=== PATIENT | female | born 1990 | race Caucasian/White ===

== ENCOUNTER → 2019-09-23 | Outpatient (REF) | payer OTHER | LOC: M LAB REF 17:42 | PROVIDERS: ATTEND Family Medicine | DX: N39.490 Overflow incontinence (principal) ==

== ENCOUNTER → 2020-10-27 | Outpatient (CLI) | payer OTHER ==
[2020-10-27 14:15] LABS: HEMOGLOBIN A1c 5.9 %
[2020-10-27 14:27] LABS: ALT/SGPT 24 U/L (12-78); BILIRUBIN,TOTAL 0.4 MG/DL (0.2-1.0); BLOOD UREA NITROGEN 13 MG/DL (7-18); CARBON DIOXIDE LEVEL 30 MEQ/L (21-32); CHLORIDE LEVEL 106 MEQ/L (98-107); CREATININE FOR GFR 0.57 MG/DL (0.55-1.30); GLOMERULAR FILTRATION RATE > 60.0 (>60); GLUCOSE, FASTING 100 MG/DL (70-100); POTASSIUM SERUM 4.3 MEQ/L (3.5-5.1); SODIUM LEVEL 139 MEQ/L (136-145); TOTAL PROTEIN 7.5 GM/DL (6.4-8.2)
[2020-10-27 14:30] LABS: FOLLICLE STIMULATING HORMONE 5.9 mIU/mL; LUTEINIZING HORMONE 1.6 mIU/mL; TESTOSTERONE 19 NG/DL (14-76)
== END ==
LOC: M PLALAB 10:59
PROVIDERS: ATTEND Family Medicine
DX: E28.2 Polycystic ovarian syndrome (principal)

== ENCOUNTER → 2021-03-09 | Outpatient (REF) | payer OTHER | LOC: M LAB REF 17:13 | PROVIDERS: ATTEND Family Medicine | DX: J06.9 Acute upper respiratory infection, unspecified (principal) ==

== ENCOUNTER → 2021-08-11 | Outpatient (CLI) | payer OTHER | LOC: M WHC 11:50 | PROVIDERS: ATTEND Family Medicine | DX: L72.3 Sebaceous cyst (principal) ==

== ENCOUNTER → 2022-10-30 | Outpatient (CLI) | payer OTHER | LOC: M RAD 11:39 | PROVIDERS: ATTEND Family Medicine | DX: N92.6 Irregular menstruation, unspecified (principal) ==

== ENCOUNTER → 2022-12-06 | Outpatient (CLI) | payer OTHER ==
[2022-12-06 18:53] LABS: BASO # 0.1 10^3/uL (0.0-0.2); EOS # 0.2 10^3/uL (0.0-0.5); EOS % 2.2 % (0.0-3.0); HEMATOCRIT 41.9 % (36.0-47.0); HEMOGLOBIN 13.6 g/dl (12.0-15.5); LYMPH # 3.2 10^3/uL (1.5-5.0); MEAN CORPUSCULAR HEMOGLOBIN 28.6 pg (27.0-33.0); MEAN CORPUSCULAR HGB CONC 32.5 g/dl (32.0-36.5); MEAN CORPUSCULAR VOLUME 88.2 fl (80.0-96.0); MONO # 0.6 10^3/uL (0.0-0.8); NEUTROPHILS # 3.9 10^3/uL (1.5-8.5); NEUTROPHILS % 49.5 % (36.0-66.0); PLATELET COUNT, AUTOMATED 349 10^3/uL (150-450); RED BLOOD COUNT 4.75 10^6/uL (4.00-5.40); WHITE BLOOD COUNT 7.9 10^3/uL (4.0-10.0)
[2022-12-06 19:19] LABS: IRON (FE) 50 UG/DL (50-170)
[2022-12-06 19:20] LABS: ALBUMIN 3.6 G/DL (3.2-5.2); ALKALINE PHOSPHATASE 58 U/L (46-116); ALT/SGPT 18 U/L (7.0-40); AST/SGOT 10 U/L (<34); BILIRUBIN,TOTAL 0.2 MG/DL (0.3-1.2); BLOOD UREA NITROGEN 9 MG/DL (9-23); CALCIUM LEVEL 9.7 MG/DL (8.5-10.1); CARBON DIOXIDE LEVEL 28 MMOL/L (20-31); CHLORIDE LEVEL 104 MMOL/L (98-107); CREATININE FOR GFR 0.68 MG/DL (0.55-1.30); GLOMERULAR FILTRATION RATE > 60.0 (>60); GLUCOSE, FASTING 164 MG/DL (60-100); PERCENT SATURATION 11.8 % (13.2-45.0); POTASSIUM SERUM 4.6 MMOL/L (3.5-5.1); SODIUM LEVEL 139 MMOL/L (136-145); TOTAL IRON BINDING CAPACITY 424 UG/DL (250-425); TOTAL PROTEIN 7.1 G/DL (5.7-8.2)
[2022-12-06 19:22] LABS: FERRITIN 42.3 NG/ML (7.3-270.7); FOLATE 16.07 NG/ML (>5.4)
== END ==
LOC: M WUC 15:06
PROVIDERS: ATTEND Nurse Practitioner Adult Health
DX: N92.0 Excessive and frequent menstruation with regular cycle (principal)

== ENCOUNTER → 2023-03-05 | Outpatient (REF) | payer OTHER | LOC: M LAB REF 17:30 | PROVIDERS: ATTEND Nurse Practitioner Adult Health | DX: J02.9 Acute pharyngitis, unspecified (principal) ==

== ENCOUNTER 2023-04-27 09:50 | Outpatient (RCR) | payer OTHER | END 2023-05-23 | LOC: M PT 09:50 | PROVIDERS: ATTEND Advanced Practice Midwife | DX: R10.2 Pelvic and perineal pain (principal) ==

== ENCOUNTER 2023-06-01 13:03 | Outpatient (RCR) | payer OTHER | END 2023-06-21 | LOC: M PT 13:03 | PROVIDERS: ATTEND Advanced Practice Midwife | DX: R10.2 Pelvic and perineal pain (principal) ==

== ENCOUNTER 2023-10-05 09:39 | Observation (INO) | payer OTHER ==
[2023-10-05] VITALS (8 sets, daily range): BP systolic 114–144; BP diastolic 59–80; TEMP 98.1–99.1; O2SAT 96–100
[~2023-10-05] VITALS: Ht 154.9 cm; Wt 87.9 kg
[~2023-10-05 09:39] MED LIST: LIDOCAINE 2% 100MG/5ML SDV (FOR ANES.) As Ordered ONE; MIDAZOLAM INJ 2MG/2ML VIAL As Ordered ONE; MYO INOSITOL PO; NORG1TAB33; ROCURONIUM BROMIDE 50MG/5ML VIAL As Ordered ONE; [UNRECOGNIZED DRUG - OTHER] PO; fentaNYL 100 MCG/2 ML INJECTION As Ordered ONE; propofoL 200 MG/20 ML VIAL As Ordered ONE
[2023-10-05 10:05] LABS: HEMATOCRIT 43.6 % (36.0-47.0); HEMOGLOBIN 14.5 g/dl (12.0-15.5); MEAN CORPUSCULAR HEMOGLOBIN 28.6 pg (27.0-33.0); MEAN CORPUSCULAR HGB CONC 33.3 g/dl (32.0-36.5); PLATELET COUNT, AUTOMATED 318 10^3/uL (150-450); RED BLOOD COUNT 5.07 10^6/uL (4.00-5.40); WHITE BLOOD COUNT 6.8 10^3/uL (4.0-10.0)
[2023-10-05] MEDS: LR 1,000 ML IV SCH ×2 (10:05→14:00)
[2023-10-05] MEDS: ceFAZolin SOD 2 GM in IV 1 EA IV ONE (10:05)
[2023-10-05] MEDS ORDERED: ACETAMINOPHEN 1000MG 100ML IV BAG As Ordered ONE (10:46)
[2023-10-05] MEDS ORDERED: SUGAMMADEX SODIUM 500 MG/5 ML VIAL (BRIDION) As Ordered ONE (10:55)
[2023-10-05] MEDS ORDERED: ONDANSETRON 4MG 2ML VIAL As Ordered ONE (10:55)
[2023-10-05] MEDS: METHYLENE BLUE 0.5% (5MG/ML) 10 ML AMP (PROVAYBLUE) As Ordered ONE (11:21)
[2023-10-05] MEDS ORDERED: ONDANSETRON 4MG 2ML VIAL IV PRN (12:30)
[2023-10-05] MEDS ORDERED: MORPHINE 4 MG/ML 1ML VIAL IV PRN (12:30)
[2023-10-05] MEDS ORDERED: PROMETHAZINE 25MG/ML 1ML VIAL IV PRN (12:30)
[2023-10-05] MEDS ORDERED: PERCOCET PO (12:35)
[2023-10-05] MEDS ORDERED: IBUP80TA PO (12:35)
[2023-10-05] MEDS ORDERED: COLA100C5 PO (12:35)
[2023-10-05] MEDS: fentaNYL 100 MCG/2 ML INJECTION IV PRN (12:59)
[2023-10-05] MEDS: KETOROLAC 30 MG/ML 1ML VIAL IV SCH (13:17)
[2023-10-05] MEDS: oxyCODONE 5MG TAB PO PRN (13:36)
[2023-10-05] MEDS: ONDANSETRON 4MG 2ML VIAL IV PRN (13:43)
[2023-10-05] MEDS: DOCUSATE SODIUM 100MG CAPSULE PO SCH (20:33)
[2023-10-05] MEDS: PERCOCET 5MG/325MG TAB PO PRN (20:33)
[2023-10-06] VITALS: BP 108/57; TEMP 98; O2SAT 98
[2023-10-06] MEDS: PERCOCET 5MG/325MG TAB PO PRN (03:26)
[2023-10-06 04:00] VITALS: BP 106/51; TEMP 98; O2SAT 99
[2023-10-06 08:00] VITALS: BP 108/61; TEMP 97.6; O2SAT 98
[2023-10-06] MEDS ORDERED: IBUPROFEN 800 MG TAB PO SCH (15:00)
== END 2023-10-06 12:47 | disposition home or self-care (01) ==
LOC: M SDC 09:39 → M RR INP 09:40 → M PED 14:04
PROVIDERS: ADMIT Obstetrics & Gynecology; ATTEND Obstetrics & Gynecology
DX: N85.8 Other specified noninflammatory disorders of uterus (principal); R10.2 Pelvic and perineal pain; N93.9 Abnormal uterine and vaginal bleeding, unspecified; Z88.8 Allergy status to other drugs, medicaments and biological substances; Z88.5 Allergy status to narcotic agent; Z79.899 Other long term (current) drug therapy
CPT/HCPCS: 36415; 58571; 81025; 85027; 86850; 86900; 86901; 88307; 96374; 96376; J0131; J0665; J0690; J1100; J1885; J2250; J2405; J3010; Q9968; S2900